=== PATIENT | male | born 2000 | race African-American/Black ===

== ENCOUNTER 2022-04-17 14:24 | Emergency (ER) | payer OTHER, SELFPAY ==
[2022-04-17 15:14] VITALS: BP 113/68; PULSE 63; RESP 18; TEMP 36.8; O2SAT 100; BMI 27.8
== END 2022-04-17 19:50 | disposition left against medical advice (07) ==
PROVIDERS: Emergency Provider Emergency Medicine; PCP Physician Assistant
DX: M54.50 Low back pain, unspecified (principal)
CPT/HCPCS: 99281

== ENCOUNTER 2022-04-19 22:05 | Emergency (ER) | payer OTHER, SELFPAY ==
--- NOTE | ~2022-04-19 | XR_ITS ---
EXAMINATION: XR KNEE, LEFT CLINICAL INFORMATION: Pain, unable to bear weight COMPARISON: None TECHNIQUE: Four views of the left knee. FINDINGS: Osseous alignment is anatomic, and joint spaces are maintained. On the lateral view there is suggestion of a lateral femoral notch sign along the femoral condyle. Otherwise, no acute fracture is seen. Small joint effusion. XR/XR knee LT 4V IMPRESSION: Small effusion. Suggestion of a lateral femoral notch sign which can be associated with ACL injury. If clinically warranted, this would be best further assessed with MRI.
[2022-04-19 22:17] VITALS: BP 115/80; PULSE 83; RESP 16; TEMP 36.1; O2SAT 95; BMI 27.8
[2022-04-19] MEDS: Ibuprofen 600 MG TABLET PO (22:26)
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
[2022-04-20 04:51] VITALS: BP 124/69; PULSE 69; RESP 16; O2SAT 98
== END 2022-04-20 04:52 | disposition home or self-care (01) ==
PROVIDERS: Emergency Provider Internal Medicine
DX: S83.8X2A Sprain of other specified parts of left knee, initial encounter (principal); V43.62XA Car passenger injured in collision with other type car in traffic accident, initial encounter; Y93.89 Activity, other specified; Y92.414 Local residential or business street as the place of occurrence of the external cause; Y99.9 Unspecified external cause status
CPT/HCPCS: 73564; 99283; 99284

== ENCOUNTER 2023-09-02 12:24 | Outpatient (AMB) | payer OTHER, SELFPAY ==
[2023-09-02 12:26] VITALS: BP 118/76; PULSE 77; O2SAT 98; BMI 27.9
--- NOTE | 2023-09-02 12:26 | MHC.PC.OV ---
Vital Signs 09/02/23 12:26 Height 6 ft 2 in Weight 217 lb BMI 27.9 BP 118/76 Blood Pressure Location Rt brachial Position Sitting Pulse 77 Pulse Source Pulse Oximeter Pulse Oximetry (%) 98 Oxygen Delivery Method Room Air Intake Visit Reasons: CLINICAL DIETETIC TECHNICIAN, establish care Intake Note: Patient is here today as an New Patient Establishing Care Allergies Seasonal Allergies Allergy (Mild, Verified 09/02/23 12:29) Runny Nose Tobacco use date assessed: 09/02/23 Dental Screening Dental Screen Date: 09/02/23 Did you have a dental visit in the last 12 months?: No Did you have a dental problem in the last 6 months where you did not have access to dental care?: No Was dental information given to patient?: No HPI HPI Comments History of Present Illness Details Patient is a 22-year-old male here to establish care. He needs to establish a dentist, as he has not had dental exam in 3 years. He has no significant past medical history. He has no significant surgical history. He currently is not taking any medications. No complaints at the time of appointment. [facility] Family History (Updated 09/02/23 @ 13:00 by REHANA Avila) Maternal Grandfather Diabetes Paternal Grandfather Diabetes Housing: House Patient Tobacco Use Status: Never used Tobacco e-Cigarette/Vaping Use: Never Used service: No Current occupational status: unemployed Cognitive needs: No Hearing needs: No Vision needs: No Questionnaire PHQ-9 Over the last 2 weeks, how often have you been bothered by any of the following problems? 1. Little interest or pleasure in doing things: not at all 2. Feeling down, depressed, or hopeless: not at all 3. Trouble falling or staying asleep, or sleeping too much: several days 4. Feeling tired or having little energy: not at all 5. Poor appetite or overeating: several days 6. Feeling bad about yourself - or that you are a failure or have let yourself or your family down: not at all 7. Trouble concentrating on things, such as reading the newspaper or watching television: several days 8. Moving or speaking so slowly that other people could have noticed. Or the opposite - being so fidgety or restless that you have been moving around a lot more than usual: not at all 9. Thoughts that you would be better off or of hurting yourself in some way: not at all Total score: 3 Depression Screening Interpretation: Negative Depression Screening Done: Yes 77995 - PHQ-9 Billing: Yes Source: Developed by Drs. Flaco Altman, Melissa Jeffrey, Fredrick Worley and colleagues, with an educational van from [employer]. Thrive Questionnaire Date Thrive assessed: 09/02/23 I am a: Patient What is your living situation today?: I have a steady place to live Within the past 12 months, did the food you bought not last and you didn't have the money to get more?: Sometimes True Within the past 12 months, did you worry whether your food would run out before you got money to buy more?: Sometimes True Do you have trouble paying for medicines?: No Do you have trouble getting transportation to medical appointments?: No Do you have trouble paying your heating and electricity bill?: No Do you have trouble taking care of your child, family member or friend?: No Do you have trouble with day-to-day activities such as bathing, preparing meals, shopping, managing finances, etc.?: No Are you currently unemployed and looking for a job?: Yes Are you interested in more education?: Yes AUDIT C Alcohol Use Questionnaire (AUDIT-C) 1. How often do you have a drink containing alcohol?: Monthly or less 3. How often do you have six or more drinks on one occasion?: Never Total Score: 1 Score Reviewed/Action Taken: Yes KARIE-7 AMB Questionnaire KARIE-7 Date KARIE - 7 assessed: 09/02/23 Feeling nervous, anxious, or on edge: 0 = Not at all Not being able to stop or control worryin = Several days Worrying too much about different things: 0 = Not at all Trouble relaxin = More than half the days Being so restless that it is hard to sit still: 0 = Not at all Becoming easily annoyed or irritable: 1 = Several days Feeling afraid as if something awful might happen: 1 = Several days Total KARIE-7 score (0-4 normal; 5-9 mild; 10-14 moderate; 15-21 severe): 5 Source: Developed by Drs. Flaco Altman, Melissa Jeffrey, Fredrick Worley and colleagues, with an educational van from [employer]. KARIE-7 Assessment Billing KARIE-7 Assessment Tool: KARIE-7 Assessment 63499 Review of Systems Const Details: Constitutional : No Weight loss, No Fever, No Chills, No Fatigue, No Malaise ENT/Mouth : No sore throat, No Rhinorrhea Eyes: No Eye Pain, No Swelling, No Redness Cardiovascular : No Chest Pain, No SOB, No Dyspnea on Exertion, No Orthopnea, No Edema, No Palpitations Respiratory : No Cough, No Sputum, No Wheezing Gastrointestinal : No Nausea, No Vomiting, No Diarrhea, No Constipation, No abdominal Pain, No Hematochezia, No Melena Genitourinary : No Dysuria, No Urinary Frequency, No Hematuria, Musculoskeletal : No joint pain, No Myalgias, No Joint Swelling Skin : No Skin Lesions, No rash Neuro : No Weakness, No Numbness, No Dizziness, No Headache Psych : No Anxiety/Panic, No Depression Heme/Lymph: No Bruising, No Bleeding,No Lymphadenopathy Endocrine : No Polyuria, No Polydipsia All other systems reviewed and are negative Physical exam (Primary Care) Vital Signs: Last Vital Signs Pulse 77 09/02/23 12:26 BP 118/76 09/02/23 12:26 Pulse Ox 98 09/02/23 12:26 Oxygen Delivery Method Room Air 09/02/23 12:26 Patient's vital signs have been reviewed and are stable. BMI result Body Mass Index 27.9 Tobacco/Smoking Status: Tobacco use Status Tobacco use date assessed 09/02/23 09/02/23 12:32 Patient Tobacco Use Status Never used Tobacco 09/02/23 12:32 e-Cigarette/Vaping Use Never Used 09/02/23 12:32 Depression Screening Interpretation: Negative Const Other: Appearance: Alert.? Oriented X3.? No acute distress.? Head: Normocephalic, atraumatic, no step-offs or deformities Eyes: Pupils equal, round and reactive to light.? ENT: Pharynx normal.?Nares patent. TM visible, intact, pearly gonzáles. Neck: Normal inspection.? Neck supple. No lymphadenopathy. ? CVS: Normal heart rate and rhythm.? Pulses normal.? Respiratory: No respiratory distress.? Breath sounds normal.? Abdomen: Soft and nontender.? Skin: Skin warm and dry.? Normal skin color.? Normal skin turgor.? Extremities: No lower extremity edema.? No calf ttp. 5/5 strength to bilateral upper and lower extremities. Crepitus in left knee. Back: No midline tenderness, no C-spine tenderness, full range of motion, no CVA tenderness bilaterally Neuro: Oriented X 3.? No motor deficit.? No sensory deficit. CN 2-12 intact General: cooperative and no acute distress Results Reviewed Results Reviewed: Will call patient with lab results. Assessment and Plan Assessment & Plan (1) Physical exam: Code(s): Z00.00 - Encounter for general adult medical examination without abnormal findings Plan: Patient has agreed to find dentist and get his dental cleaning. He will have labs drawn CBC, CMP, UA, lipid profile, Tsh, vitamin D3. Patient will follow-up in 1 year with physical exam. (2) Crepitus of joint of left knee: Code(s): M23.8X2 - Other internal derangements of left knee Plan: Upon physical examination patient was noted to have crepitus of the left knee. Will obtain x-ray of left knee and order physical therapy. Patient is agreeable to this plan. Orders: Orders Comprehensive Met. Panel Today Z00.00 - Encounter for general adult medical examination without abnormal findings UA CC w/rflx Micro + Cult Today Z00.00 - Encounter for general adult medical examination without abnormal findings Vitamin D 25-OH (D2 and D3) Today Z00.00 - Encounter for general adult medical examination without abnormal findings TSH reflex Free T4 Today Z00.00 - Encounter for general adult medical examination without abnormal findings XR knee LT 2V Today M23.8X2 - Other internal derangements of left knee Complete Blood Count Auto Diff Today Z00.00 - Encounter for general adult medical examination without abnormal findings Lipid Panel Today Z00.00 - Encounter for general adult medical examination without abnormal findings PT Evaluation and Treatment Today M25.562 - Pain in left knee Coding Level of Care Code New Pt Level 4 (30944) Diagnoses Physical exam Z00.00 Crepitus of joint of left knee M23.8X2 Additional Codes KARIE-7 Assessment Billing - KARIE-7 Assessment Tool: KARIE-7 Assessment [id number] ([id number]) Time Spent (min) 30
== END 2023-09-02 12:58 | disposition home or self-care (01) ==
PROVIDERS: Visit Provider Nurse Practitioner Primary Care
DX: M23.8X2 Other internal derangements of left knee (principal)
CPT/HCPCS: 99204; 99214